=== PATIENT | female | born 2000 | race American Indian/Alaskan Native ===

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

== ENCOUNTER 2019-11-19 16:19 | Emergency (ER) | payer SELFPAY ==
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
[2019-11-19 17:15] VITALS: BP 140/74
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
[2019-11-19] MEDS ORDERED: traMADol 50 MG TAB PO ONE (21:02)
== END 2019-11-19 21:30 | disposition left against medical advice (07) ==
LOC: ED 16:19
DX: M54.2 Cervicalgia (principal); Z53.21 Procedure and treatment not carried out due to patient leaving prior to being seen by health care provider
CPT/HCPCS: 72040; 72100